=== PATIENT | female | born 1950 | race Caucasian/White ===

== ENCOUNTER 2018-09-29 16:28 | Inpatient (IN) | payer MEDICARE ==
[~2018-09-29] VITALS: Ht 165.1 cm; Wt 93.0 kg
[2018-09-29 16:29] VITALS: BP 151/63
[2018-09-29] MEDS ORDERED: PLAVIX 75 MG TA75 M1 PO (16:35)
[2018-09-29] MEDS ORDERED: CIPRO500 MG PO (16:36)
[2018-09-29] MEDS ORDERED: CYMBALTA60 MG PO (16:36)
[2018-09-29] MEDS ORDERED: LOPRESSOR50 PO (16:36)
[2018-09-29] MEDS ORDERED: SIMVASTATIN40 MG PO (16:36)
[2018-09-29] MEDS ORDERED: XARELTO20 MG PO (16:37)
[2018-09-29] MEDS ORDERED: IMDUR 30 MG TAB30 M1 PO (16:37)
[2018-09-29] MEDS ORDERED: COUMADIN 5 MG TA5 M1 PO (16:37)
[2018-09-29] MEDS ORDERED: TRAZODONE HCL100 MG PO (16:37)
[2018-09-29] MEDS ORDERED: NITROGLYCERIN0.4 MG SUBLING (16:38)
[2018-09-29] MEDS ORDERED: ASPIR 8181 MG PO ×2 (16:40)
[2018-09-29 16:57] LABS: ABSOLUTE BASOPHILS 0.1 thou/uL (0.0-0.2); ABSOLUTE EOSINOPHILS 0.1 thou/uL (0.0-0.7); ABSOLUTE LYMPHOCYTES 1.4 thou/uL (0.8-5.3); ABSOLUTE MONOCYTES 0.8 thou/uL (0.0-1.2); ABSOLUTE NEUTROPHILS 4.8 thou/uL (1.6-8.1); BASOPHILS 0.8 %; EOSINOPHILS 1.4 %; LYMPHOCYTES 19.4 %; MCH 32.5 pg (26.0-34.0); MCHC 32.5 g/dL (28.0-37.0); MCV 100.2 fL (80.0-100.0); MONOCYTES 10.8 %; MPV 10.1 fl. (7.2-11.1); NUCLEATED RBCS 0 /100WBC; PLATELET COUNT* 143 thou/uL (150-400); POLYS 67.6 %; RBC 3.99 mil/uL (4.20-5.00); RDW-CV 13.2 % (10.5-14.5); WBC 7.1 thou/uL (4.0-11.0)
[2018-09-29 17:11] LABS: CREATININE 0.9 mg/dL (0.6-1.3); POTASSIUM 3.7 mmol/L (3.5-5.1)
[2018-09-29 17:15] LABS: ALBUMIN 3.4 g/dL (3.4-5.0); TOTAL BILIRUBIN 0.6 mg/dL (<0.1-1.0); TOTAL PROTEIN 7.5 g/dL (6.4-8.2)
[2018-09-29 18:21] LABS: URINE BILIRUBIN NEGATIVE (Negative); URINE BLOOD TRACE (Negative); URINE CLARITY CLEAR; URINE COLOR YELLOW; URINE GLUCOSE-RANDOM NEGATIVE (Negative); URINE KETONES TRACE (Negative); URINE LEUKOCYTES-REFLEX 1+ (Negative); URINE NITRITE-REFLEX NEGATIVE (Negative); URINE PROTEIN NEGATIVE (Negative); URINE SPECIFIC GRAVITY 1.025 (1.005-1.030)
[2018-09-29 18:26] LABS: CASTS None Seen /LPF (None Seen); CRYSTALS None Seen /LPF (None Seen); SQUAMOUS 0-3 Few /LPF (0-3)
[2018-09-29 18:27] LABS: BACTERIA-REFLEX None Seen /HPF (None Seen); MUCUS >6 Heavy strn/LPF (None Seen); URINE RBC 0-2 Rare /HPF (0-2)
[2018-09-29 19:51] VITALS: BP 149/68
[2018-09-29 20:30] VITALS: BP 145/69
--- NOTE | 2018-09-29 23:50 | NUR ---
PATIENT WAS BROUGHT TO THE FLOOR AND REPORT GIVEN FROM ER NURSE AT APPROXIMATELY 1999. PATIENT ADMITTED TO ROOM 310. VSS ON RA. PATIENT ORIENTED TO ROOM AND POLICIES AND ADMISSION ROUTINES WERE STARTED. FALL EDUCATION GIVEN AND FALL AGREEMENT SIGNED. PATIENT VERBALIZED UNDERSTANDING.ASSESSMENT CHARTED. IV IN RIGHT AC- NS @ 100ML/HR. PAIN MEDICATION GIVEN IN THE ER. PAIN CONTROLLED AT TIME OF ADMISSION TO UNIT. PATIENT INSTRUCTED TO USE CALL LIGHT WHEN NEEDING ASSISTANCE. HOURLY ROUNDS MADE. WILL CONTINUE WITH PLAN OF CARE AND NURSING TO MONITOR.
[2018-09-30 03:56] LABS: HEMATOCRIT 35.5 % (37.0-47.0); HEMOGLOBIN 11.7 gm/dL (12.0-15.0); MCH 33.1 pg (26.0-34.0); MCHC 33.1 g/dL (28.0-37.0); MCV 100.1 fL (80.0-100.0); RBC 3.54 mil/uL (4.20-5.00); RDW-CV 12.8 % (10.5-14.5); WBC 5.9 thou/uL (4.0-11.0)
[2018-09-30 04:18] LABS: ALBUMIN 2.7 g/dL (3.4-5.0); CALCIUM 8.2 mg/dL (8.5-10.1); CREATININE 0.8 mg/dL (0.6-1.3); MAGNESIUM 1.8 mg/dL (1.8-2.4); POTASSIUM 4.2 mmol/L (3.5-5.1); TOTAL BILIRUBIN 0.5 mg/dL (<0.1-1.0); TOTAL PROTEIN 5.8 g/dL (6.4-8.2)
--- NOTE | 2018-09-30 05:17 | NUR ---
PATIENT HAS SLEPT WELL OFF AND ON DURING THE NIGHT. VSS ON RA. PAIN MEDICATION GIVEN ORDERED AND CHARTED. VSS ON RA. PATIENT HAS REMAINED BEDREST SINCE BEING ADMITTED TO UNIT. IV IN RIGHT AC-NS @ 100ML/HR. IV ABT GIVEN WITHOUT ANY ADVERSE SIDE EFFECTS NOTED. PATIENT INSTRUCTED TO USE CALL LIGHT WHEN NEEDING ASSISTANCE. HOURLY ROUNDS MADE. WILL CONTINUE WITH PLAN OF CARE AND NURSING TO MONITOR.
[2018-09-30 08:00] VITALS: BP 118/61
--- NOTE | 2018-09-30 12:30 | NUR ---
PT.SLEEPING. AWAKENED EASILY. SHE SAID SHE LIVES IN A HOUSE. HER SON AND HIS GIRLFRIEND ARE THERE QUITE ALOT AND CAN ASSIST HER AT HOME IF NEEDED. SHE DOES NOT USE DME. HAS NOT HAD HOME HEALTH BEFORE. SHE IS NORMALLY INDEPENDENT. DRIVES,COOKS,CLEANS,ETC. SHE DOES NOT FEEL SHE WILL HAVE ANY DISCHARGE NEEDS.
--- NOTE | 2018-09-30 16:40 | NUR ---
PATIENT A&OX4, RA, IV RIGHT AC FLUIDS INFUSSING. BEDREST, PATIENT UNABLE TO GET UP FROM BED DUE TO BACK SPASMS, PAIN MEDICATION GIVEN, MINIMAL TO NO RELIEF WITH MEDICATION. INCONTINENT OF BOWEL AND BLADDER, DOESN'T ALWAYS CALL OUT. PATIENT CHECKED EVERY 2 HOURS. NO OTHER CONCERNS AT THIS TIME.
[2018-09-30 21:00] VITALS: BP 130/60
[2018-10-01 04:53] LABS: HEMATOCRIT 35.9 % (37.0-47.0); HEMOGLOBIN 11.8 gm/dL (12.0-15.0); MCHC 32.8 g/dL (28.0-37.0); MCV 100.6 fL (80.0-100.0); MPV 10.9 fl. (7.2-11.1); RBC 3.57 mil/uL (4.20-5.00); RDW-CV 12.8 % (10.5-14.5); WBC 7.6 thou/uL (4.0-11.0)
[2018-10-01 05:14] LABS: ALBUMIN 2.6 g/dL (3.4-5.0); CALCIUM 8.2 mg/dL (8.5-10.1); CREATININE 0.8 mg/dL (0.6-1.3); MAGNESIUM 1.6 mg/dL (1.8-2.4); POTASSIUM 4.1 mmol/L (3.5-5.1); TOTAL BILIRUBIN 0.4 mg/dL (<0.1-1.0); TOTAL PROTEIN 6.2 g/dL (6.4-8.2)
--- NOTE | 2018-10-01 06:11 | NUR ---
PATIENT HAS SLEPT WELL THROUGHOUT THE NIGHT. VSS ON RA. PAIN CONTROLLED AND MEDICATION GIVEN ORDERED AND CHARTED. ASSESSMENT CHARTED. PATIENT INCONTINENT OF BLADDER AND SARA CARE PERFORMED. PATIENT TURNING HERSELF IN BED. IV IN RIGHT AC-NS @ 100ML/HR. PATIENT INSTRUCTED TO USE CALL LIGHT WHEN NEEDING ASSISTANCE. HOURLY ROUNDS MADE. WILL CONTINUE WITH PLAN OF CARE AND NURSING TO MONITOR.
[2018-10-01 07:54] VITALS: BP 121/67
--- NOTE | 2018-10-01 16:05 | NUR ---
PER PHYSICIAN'S ORDER, GAVE AND DISCUSSED [facility]. THEY ARE ALL TAKING NEW PT.'S. SHE SEEMED VERY APPRECIATIVE OF THIS INFORMATION AND SAID SHE WILL CALL ONE OF THEM TO GET A NEW PCP.
--- NOTE | 2018-10-01 17:18 | NUR ---
PT REMAINED ALERT AND ORIENTED THIS SHIFT. PT HAS C/O BACK PAIN AND SPASMS, HYDROCODONE GIVEN, LIDOCAINE PATCH APPLIED TO CENTER LOW BACK. FLEXERIL REQUESTED FROM PROVIDER. AWAITING ORDER FOR MEDICATION. PT HAS WORKED WITH PT AND GOTTEN UP TO BEDSIDE COMMODE. HOURLY ROUNDING COMPLETED. BED ALARM ON. CALL LIGHT IN REACH. WILL CONTINUE TO MONITOR.
[2018-10-01 19:30] VITALS: BP 131/66
--- NOTE | 2018-10-01 20:08 | NUR ---
THIS NURSE ASSUMES CARE OF PT AT 1900, PT IS ALERT AND ORIENTED X4, PLEASANT MOOD, PT COMPLAINS OF LOWER LEFT BACK PAIN THAT GOES AROUND TO THE SIDE, STOMACH, AND PELVIS, RATES PAIN 5/10 BUT SAYS IT IS TOLERABLE, PT REPORTS THAT SHE DID NOT EAT DINNER DUE TO DISCOMFORT FROM THIS PAIN, PT PROVIDED WITH BOXED LUNCH, ASSESSMENT COMPLETE, PT NO FURTHER COMPLAINTS/CONCERNS AT THIS TIME, PT REMINDED TO USE CALL LIGHT IF SHE NEEDS TO GET UP FOR TOILETING, BED ALARM ON
[2018-10-02] VITALS: BP 105/55
[2018-10-02 04:33] LABS: HEMATOCRIT 32.9 % (37.0-47.0); HEMOGLOBIN 10.9 gm/dL (12.0-15.0); MCHC 33.2 g/dL (28.0-37.0); MCV 99.3 fL (80.0-100.0); MPV 10.4 fl. (7.2-11.1); RBC 3.32 mil/uL (4.20-5.00); RDW-CV 12.6 % (10.5-14.5); WBC 5.5 thou/uL (4.0-11.0)
[2018-10-02 04:43] LABS: CALCIUM 8.5 mg/dL (8.5-10.1); CREATININE 0.9 mg/dL (0.6-1.3); MAGNESIUM 1.7 mg/dL (1.8-2.4); POTASSIUM 4.3 mmol/L (3.5-5.1)
[2018-10-02 08:00] VITALS: BP 100/50
[2018-10-02 16:00] VITALS: BP 83/56
--- NOTE | 2018-10-02 16:59 | NUR ---
SHIFT NOTE - PT WORKED WITH PT THIS AM. TOLERATED WELL. PT HAD ONE EPISODE OF NAUSEA. ZOFRAN IV GIVEN. DENIES PAIN. PT RESTING IN BED FOR MOST OF DAY. WILL CONTINUE TO MONITOR.
[2018-10-02 18:05] VITALS: BP 123/63
[2018-10-02 20:00] VITALS: BP 105/51
--- NOTE | 2018-10-03 05:16 | NUR ---
ASSUMED PATIENT CARE AT 1900. PATIENT ALERT AND ORIENTED TIMES FOUR. MINOR COMPLAINTS OF PAIN NOTED. CONTROLLED WITH ORAL PAIN MEDICATION. NO OTHER CONCERNS AT THIS TIME. UP AD JOHNNIE IN ROOM. IV PATENT. RELATIONSHIP MANAGEMENT LEAD AND HOURLY ROUNDING COMPLETED DOCUMENTED.
[2018-10-03 07:50] VITALS: BP 115/65
[2018-10-03] MEDS ORDERED: MIRALAX17 GM PO (09:33)
[2018-10-03] MEDS ORDERED: TRAMADOL 50 MG50 MG PO (09:33)
[2018-10-03] MEDS ORDERED: CYCLOBENZAPRINE10 MG PO (09:33)
[2018-10-03] MEDS ORDERED: PREDNISONE 20 M20 MG PO (09:33)
[2018-10-03] MEDS ORDERED: MACROBID 100 M100 M1 PO (09:33)
[2018-10-03] MEDS ORDERED: LIDOPATCH1 EACH TOP (09:33)
[2018-10-03 13:26] VITALS: BP 115/65
[2018-10-03 14:26] VITALS: BP 115/65
--- NOTE | 2018-10-03 14:28 | NUR ---
PATIENT HAS BEEM ALERT AND ORIENTED TODAY, VERY PLEASANT. UP AD JOHNNIE IN ROOM, SOME COMPLAINTS OF PAIN THAT IS SOMEWHAT CONTROLED WITH LIDOCAINE PATCH AND HEAT PAD, ENCOURAGED PATIENT TO GET UP AND MOVE MUCH POSSIBLE TO HELP WITH BACK STIFFNESS. PATIENT IS DISCHARGED TO HOME. DISCHARGE INSTRUCTIONS AND PRESCRIPTIONS GIVEN TO PATIENT. QUESTIONS ANSWERED FOR PATIENT. LEFT VIA WHEELCHAIR WITH VOLUNTEER TO GO HOME.
== END 2018-10-03 14:32 | disposition home or self-care (01) | DRG 690 ==
LOC: M.ERS 16:28 → M.TBA-ER 19:00 → M.3W 19:00
PROVIDERS: Emergency Medicine Emergency Medical Services; ADMIT Internal Medicine
DX: N12 Tubulo-interstitial nephritis, not specified as acute or chronic (principal); E44.1 Mild protein-calorie malnutrition; I25.10 Atherosclerotic heart disease of native coronary artery without angina pectoris; K21.9 Gastro-esophageal reflux disease without esophagitis; N28.1 Cyst of kidney, acquired; Z95.5 Presence of coronary angioplasty implant and graft; Z88.0 Allergy status to penicillin; Z87.891 Personal history of nicotine dependence; Z79.82 Long term (current) use of aspirin; Z79.899 Other long term (current) drug therapy; Z68.34 Body mass index [BMI] 34.0-34.9, adult